=== PATIENT | female | born 1995 | race Two or more races ===

== ENCOUNTER 2024-12-21 16:37 | Inpatient (IN) | payer MEDICAID, SELFPAY ==
[2024-12-21] VITALS (108 sets, daily range): BP systolic 117–175; BP diastolic 65–97; PULSE 37–88; RESP 18–99; TEMP 36.8–37.2; O2SAT 82–100; BMI 41.8; BMI 44.9
[2024-12-21 17:16] LABS: Collection Type, Urine Clean Catch
--- NOTE | 2024-12-21 17:16 | XR_ITS ---
Examination: Complete OB ultrasound greater than 14 weeks Date and time of exam: December 21, 2024, 1747 hours INDICATIONS: Size dates discrepancy Findings: Viable intrauterine single fetus with single amniotic sac presentation cephalic Cardiac motion 145 BPM. Placenta fundal grade 2. Umbilical cord insertion 3 vessel seen. Amniotic fluid index 4.8 cm. spine maternal left. Ovaries obscured by bowel gas as well as cervix.. Composite estimated gestational age based on BPD, head circumference, abdominal circumference, femur length is 39 weeks 6 days Estimated weight 4568 g. Survey of intracranial anatomy, spinal anatomy, abdominal anatomy, four-chamber heart performed with no abnormalities identified. Impression: Viable intrauterine gestation cephalic presentation.
[2024-12-21 17:35] LABS: Basophils # (Auto) 0.0 Thou/mm3 (0.0-0.2); Basophils % (Auto) 0 % (0-2.5); Eosinophils # (Auto) 0.1 Thou/mm3 (0.0-0.5); Eosinophils % (Auto) 1 % (0-10); Hematocrit 27.4 % (36.0-46.0); Hemoglobin 9.2 g/dL (12.0-16.0); Immature Granulocytes Auto 0.05 Thou/mm3 (0.00-0.00); Lymphocytes # (Auto) 2.0 Thou/mm3 (1.0-4.8); Lymphocytes % (Auto) 23 % (10-50); Mean Corpuscular HGB Conc 33.6 g/dl (31.0-37.0); Mean Corpuscular Hemoglobin 28.9 pg (25.0-35.0); Mean Corpuscular Volume 86 fL (80-100); Monocytes # (Auto) 0.5 Thou/mm3 (0.0-0.8); Monocytes % (Auto) 6 % (0-12); Neutrophils # (Auto) 5.8 Thou/mm3 (1.8-7.7); Neutrophils % (Auto) 69 % (37-80); Nucleated Red Blood Cell # 0.08 Thou/mm3 (0.00-0.00); Nucleated Red Blood Cell % 1 /100 WBC (0); Platelet Count 144 Thou/mm3 (140-440); RDW Standard Deviation 44.1 fL (36.4-46.3); Red Blood Count 3.18 Miln/mm3 (4.00-5.20); White Blood Count 8.4 Thou/mm3 (3.6-11.0)
[2024-12-21 17:46] LABS: ROM Kit Exp Date# 111527; ROM Kit Lot # 58102387; ROM Swab Mixed By: CA; Swb Mxed in Solvent 1 min? Yes
[2024-12-21 17:47] LABS: Rupture of Fetal Membranes Negative (Negative)
[2024-12-21 17:56] LABS: Bacteria,Urine Rare; Bilirubin,Urine Negative (Negative); Blood,Urine Negative (Negative); Clarity,Urine Turbid (Clear/Hazy); Color,Urine Yellow (Lt Yel-Yel); Glucose, Urine Negative (Negative); Ketones,Urine Negative (Negative); Leukocyte Esterase,Urine Positive (Negative); Nitrite,Urine Negative (Negative); PH,Urine 6.0 (5.0-7.0); Protein,Urine 1+ (Neg - Trace); RBC,Urine 39 /hpf (0-3); Specific Gravity,Urine 1.029 (1.001-1.035); Squamous Epithelial Cell,Urine 41 /hpf (0-5); Urobilinogen,Urine Negative mg/dL (0.0-1.0); WBC,Urine 144 /hpf (0-5)
[2024-12-21 18:24] LABS: Fibrinogen 477 mg/dL (175-375); INR 0.9 (0.9-1.3); Partial Thromboplastin Time 26.7 Seconds (22.0-36.0); Prothrombin Time 10.0 Seconds (9.0-12.2)
[2024-12-21 18:36] LABS: Creatinine,Random Urine 155 mg/dL (30-125); Protein Total, Random Urine 131 mg/dL (1-14)
[2024-12-21 18:57] LABS: Alanine Aminotransferase 12 U/L (10-49); Albumin, Serum 3.4 gm/dL (3.5-5.0); Albumin/Globulin Ratio 1.3 (1.2-2.2); Alkaline Phosphatase 175 U/L (46-116); Anion Gap 9 (7-16); Aspartate Amino Transferase 22 U/L (0-34); BUN/Creatinine Ratio 13 Ratio (12-20); Bilirubin,Total 0.5 mg/dL (0.3-1.2); Blood Urea Nitrogen 8 mg/dL (9-23); Calcium 8.3 mg/dL (8.3-10.6); Calcium (Corrected) 8.8 mg/dL (8.5-10.1); Carbon Dioxide 20.7 mMol/L (20.0-31.0); Chloride 109 mMol/L (98-107); Creatinine (Component) 0.6 mg/dL (0.6-1.3); Estimated Creatinine Clearance 194.4 mL/min (>60); Globulin 2.7 gm/dL (2.3-3.5); Glucose 121 mg/dL (74-106); LDH (Lactate Dehydrogenase) 203 U/L (120-246); Osmolality,Calculated 276 (275-295); Potassium 4.2 mMol/L (3.4-5.1); Sodium 139 mMol/L (136-145); Total Protein 6.1 gm/dL (5.7-8.2); Uric Acid 4.3 mg/dL (3.1-7.8); eGFR > 60 See Note
[2024-12-21] MEDS: RINGERS LACTATED 1000 ML 1,000 ML 100 ML IV (19:30)
--- NOTE | 2024-12-21 19:37 | ESHP_ITS ---
Documentation for date of: 12/21/24 OB Labor/Induct. HPI History of Present Illness : 1 Para: 0 Term pregnancies: 0 pregnancies: 0 Living children: 0 History of Abortions: Spontaneous and Elective: 0 History of Vaginal deliveries: 0 History of sections: No History of : No GIOVANY: 12/16/24 History of present illness: H and P dictated on STAT line #9 in [employer] : #[id number] Labs Labs: Negative: RPR, HIV and Group Beta Strep Past Medical History Surgical History SURGICAL: Negative Section Meds Home Medications and Allergies Home Medications ?Medication ?Instructions ?Recorded ?Confirmed ?Type vitamin no.45-iron-FA 28 tab PO 12/21/24 His tory mg iron-1 mg chewable tablet Allergies Allergy/AdvReac Type Severity Reaction Status Date / Time No Known Allergies Allergy Verified 12/21/24 16:46 OB Exam Physical Exam Vital signs: Temp Pulse Resp BP Pulse Ox O2 Del Method 98.9 F 75 18 135/90 H 99 Room Air 12/21/24 16:48 12/21/24 19:35 12/21/24 16:48 12/21/24 19:35 12/21/24 19:34 12/21/24 16:48 OB Results Labs 12/21/24 17:09 12/21/24 17:09 Labs: Short CBC 12/21/24 Range/Units 17:09 WBC 8.4 (3.6-11.0) Thou/mm3 Hgb 9.2 L (12.0-16.0) g/dL Hct 27.4 L (36.0-46.0) % Plt Count 144 (140-440) Thou/mm3 BMP 12/21/24 17:09 Sodium 139 Potassium 4.2 Chloride 109 H Carbon Dioxide 20.7 BUN 8 L Creatinine 0.6 Glucose 121 H Calcium 8.3 Liver Function 12/21/24 Range/Units 17:09 Total Bilirubin 0.5 (0.3-1.2) mg/dL AST 22 (0-34) U/L ALT 12 (10-49) U/L Alkaline Phosphatase 175 H (46-116) U/L Albumin 3.4 L (3.5-5.0) gm/dL Urine 12/21/24 Range/Units 16:15 Urine Color Yellow (Lt Yel-Yel) Urine Clarity Turbid A (Clear/Hazy) Urine pH 6.0 (5.0-7.0) Ur Specific [place] 1.029 (1.001-1.035) Urine Protein 1+ A (Neg - Trace) Urine Glucose (UA) Negative (Negative)
[2024-12-21 20:13] LABS: Syphilis Nonreactive (Nonreactive)
[2024-12-21] MEDS: FAMOTIDINE INJ 10 MG/ML VIAL 2 ML 20 MG IV (22:35)
[2024-12-21] MEDS: ceFAZolin/D5W 2 GM IV 2 GM/100 ML BAG IV (22:36)
[2024-12-21] MEDS: CITRIC ACID/SODIUM CITR 15 ML UDC (BICITRA) 30 ML PO (22:37)
[2024-12-22] VITALS (102 sets, daily range): BP systolic 107–142; BP diastolic 55–91; PULSE 57–98; RESP 15–25; TEMP 36.1–37.6; O2SAT 95–99
[2024-12-22] MEDS: FAMOTIDINE INJ 10 MG/ML VIAL 2 ML 20 MG IV (05:09)
[2024-12-22] MEDS: CITRIC ACID/SODIUM CITR 15 ML UDC (BICITRA) 30 ML PO (05:09)
[2024-12-22] MEDS: ceFAZolin/D5W 2 GM IV 2 GM/100 ML BAG IV (05:10)
--- NOTE | 2024-12-22 05:25 | ESDS_ITS ---
DS: Providers Provider Date of admission: 12/21/24 16:37 Primary care physician: Physician No Primary/Family Admitting Provider: Ethan Beckham MD Attending Provider on Admission: Ethan Beckham MD Attending Provider on DC: Ethan Beckham MD Discharging Provider: Ethan Beckham MD DS: Diagnosis Discharge Diagnosis (1) Macrosomia: Status: Acute (2) Oligohydramnios: Status: Acute (3) Gestational hypertension: Status: Acute (4) Iron deficiency anemia: Status: Acute (5) delivery delivered: Status: Acute Problem List Completed Was Problem List Reviewed/Reconciled?: Yes Summary/Hosp Course Brief History: H and P dictated on STAT line #9 in [employer] : #[id number] Peripartum Data Delivery Method: Low Transverse Procedures: Procedures Operation Date: 12/21/24 21:15 Actual Procedure Side Surgeon p in OB Ethan Beckham MD Time Spent with Patient Time attestation: Total time spent providing and/or coordinating discharge services: Exam Vital Signs Temp Pulse Resp BP Pulse Ox O2 Del Method 98.3 F 71 18 123/68 98 Room Air 12/21/24 19:35 12/22/24 05:03 12/21/24 19:35 12/22/24 05:03 12/22/24 05:12 12/21/24 16:48 Discharge Plan Plan Patient Disposition: HOME (Self Care) Patient condition on transfer: Stable Prescriptions/Referrals Prescriptions/Med Rec: New hydrocodone-acetaminophen 5-325 mg tablet 1 tab PO Q6H MDD 4 PRN (Reason: pain) Qty: 20 0RF ibuprofen 600 mg tablet 600 mg PO Q6H PRN (Reason: pain) Qty: 30 0RF Continued vitamin #45-iron-FA 28 mg iron- 1 mg tablet,chewable PO Referrals: No Primary/Family,Physician [Primary Care Provider] - Patient/Caregiver Discharge Instructions Discharge Activity: activity as tolerated Other Discharge Activity Instructions:: Follow up office [address] Servin Education Materials: C Section Dc Print Language: Ukrainian Stand Alone Forms: Brianna Award Info., Patient Portal Info Letter, Work/Release Restrictions Planned Discharge Date 12/24/24
--- NOTE | 2024-12-22 05:28 | PD.GYNPROC ---
Operative Note - REMEDIAL PROJECT MANAGER Procedure Date of procedure: 12/22/24 Procedure Performed: Primary Low Transverse Delivery via Pfannesteil Skin Incision. Indication: Viable IUP 40w3d Macrosomia. Oligohydramnios Gestational Hypertension Declines Vaginal Delivery Pre-Op diagnosis: Viable IUP 40w3d Macrosomia. Oligohydramnios Gestational Hypertension Declines Vaginal Delivery Post-Op diagnosis: Viable IUP 40w3d Macrosomia. Oligohydramnios Gestational Hypertension Declines Vaginal Delivery Anesthesia type: Spinal Procedure description: After proper informed consent was obtained and the patient was made aware of the risks, complications, alternatives and benefits of the proposed procedure she was taken to the operating room where she underwent induction of spinal anesthesia. She was prepped and draped in the usual sterile fashion. A timeout was performed.? A Pfannenstiel skin incision was made with the scalpel and carried through to the underlying layer of fascia with the Bovie. The fascia was nicked in the midline incision and the incision was extended bilaterally with the Bovie. The inferior aspect of the fascial incision was grasped with Stephanie clamps elevated and the underlying rectus muscle dissected off with the Bovie. The superior aspect the fascial incision was grasped with Stephanie clamps elevated and the underlying rectus muscle dissected off with the Bovie. The rectus muscles were in the midline. The peritoneum was grasped between 2 Garcia clamps and entered sharply with the Metzenbaum scissors. The peritoneum was extended superiorly and inferiorly with good visualization of the bladder. The vesicouterine peritoneum was incised transversely and the bladder flap created digitally. A [place] blade was inserted. A low transverse incision was made in the uterus with a scapel and the incision was extended digitally. The 's head delivered and the mouth and nose were suctioned with the bulb suction. The shoulder and body delivered atraumatically. The cord was clamped after 30 second delayed cord clamping and the cord was cut.? The was handed off to the waiting Pediatric staff, cord blood was collected for lab testing. The placenta was removed complete and intact. The uterus was exteriorized and cleared of all clots and debris. The uterine incision was closed with #1-0 chromic catgut suture in a running interlocking fashion. A second layer of the same suture was used to imbricate the first layer and obtain excellent hemostasis. The vesicouterine peritoneum was closed with 2-0 chromic catgut suture in a running fashion. The firm uterus was returned to the abdomen. The gutters were cleared of all clots and debris. The peritoneum was closed with 0 chromic catgut suture in running fashion. The rectus muscle was closed with 0 chromic catgut suture. The fascia was closed with 0 Vicryl beginning at each angle and ending in the center in a running fashion. The subcutaneous tissue was irrigated with warmed normal saline solution and found to be hemostatic. The subcutaneous tissue was closed with 2-0 chromic catgut suture in a running fashion. The skin was closed with 4-0 Monocryl. A Dermabond Prineo dressing was applied and a sterile pressure dressing was applied.? She tolerated the procedure well. Counts were correct. I discussed with the patient the nature of her condition, intraoperative findings and expectation for recovery all? questions answered Estimated blood loss (ml): 600 Findings: Viable Male Infant 10'10 , cephalic, Amniotic fluid clear, 9/9 Placenta removed complete and intact. Uterus , ovaries and tubes grossly wnl. Complications: none Surgical staff Romana TUCKER Operation Date: 12/21/24 21:15 Case Staff SLIDE FASTENERS INSPECTOR: Dustin Mendoza Diagnosis Discharge Diagnosis (1) Macrosomia: Status: Acute (2) Oligohydramnios: Status: Acute (3) Gestational hypertension: Status: Acute (4) Iron deficiency anemia: Status: Acute (5) delivery delivered: Status: Acute Problem List Completed Was Problem List Reviewed/Reconciled?: Yes
[2024-12-22] MEDS: KETOROLAC INJ 30 MG/ML VIAL IVP ×2 (07:35→17:48)
--- NOTE | 2024-12-22 11:30 | ESHP_ITS ---
RE: MARY ESPARZA : 1995 DATE OF ADMISSION: 12/21/2024 HISTORY OF PRESENT ILLNESS: This is a 29-year-old 1 para 0 with intrauterine at 40 weeks and 3 days who is referred by her primary CERTIFIED NURSE, Dr. Alicea to [facility] for elevated blood pressures in the office today. The patient denies any history of elevated blood pressures in her . She denies any headache, change in vision or right upper quadrant pain. She denies any chest pain, palpitations, cough, fever, shortness of breath, or lower extremity pain. She reports occasional contractions. She denies any leaking or bleeding. Her workup and evaluation shows an US with estimated weight of 4568 g and an MISTY of 4.8. The patient's care was with Dr. Alicea and her care was complicated by low back pain, obesity, and insomnia. The patient had a normal 1-hour glucose tolerance test. Her other labs appear to be within normal range. ALLERGIES: NO KNOWN DRUG ALLERGIES. MEDICATIONS: multivitamin 1 p.o. daily. SOCIAL HISTORY: She speaks Marshallese. She denies any alcohol drug use or smoking. PAST MEDICAL HISTORY: Obesity, chronic low back pain, insomnia. PAST SURGICAL HISTORY: Denies. FAMILY HISTORY: Both parents have type 2 diabetes mellitus. REVIEW OF SYSTEMS: As above. PHYSICAL EXAMINATION: Vital Signs: Blood pressure 159/95, heart rate 74, respirations 18, temperature is 98.6. HEENT: Oropharynx and sclerae are clear. Lungs: Clear to auscultation bilaterally. Heart: Regular rate and rhythm. Abdomen: Gravid consistent with macrosomia. Extremities: Nontender. Skin: No gross rashes or lesions. Neurologic: No focal deficits. ASSESSMENT AND PLAN: Intrauterine at 40 weeks and 3 days, gestational hypertension, macrosomia, Oligohydramnios. Informed consent was obtained. The patient made aware of the risks, complications, alternatives, and benefits of trial of vaginal delivery with estimated weight of 4500 g. She was offered delivery and the patient agreed to undergo delivery. She has been made aware of the risks, complications, alternatives, and benefits of delivery and she agrees. DT: 19:36:20 TT: 20:16:00 Ref: [id number] - TID: [id number] MTDD
[2024-12-22] MEDS: DOCUSATE SOD 100 MG CAPSULE PO (12:06)
[2024-12-22 12:22] LABS: Basophils # (Auto) 0.0 Thou/mm3 (0.0-0.2); Basophils % (Auto) 0 % (0-2.5); Eosinophils # (Auto) 0.0 Thou/mm3 (0.0-0.5); Eosinophils % (Auto) 0 % (0-10); Hematocrit 25.2 % (36.0-46.0); Immature Granulocytes Auto 0.06 Thou/mm3 (0.00-0.00); Lymphocytes # (Auto) 1.5 Thou/mm3 (1.0-4.8); Lymphocytes % (Auto) 14 % (10-50); Mean Corpuscular HGB Conc 32.9 g/dl (31.0-37.0); Mean Corpuscular Hemoglobin 29.1 pg (25.0-35.0); Mean Corpuscular Volume 88 fL (80-100); Monocytes # (Auto) 0.4 Thou/mm3 (0.0-0.8); Monocytes % (Auto) 4 % (0-12); Neutrophils # (Auto) 8.8 Thou/mm3 (1.8-7.7); Neutrophils % (Auto) 82 % (37-80); Nucleated Red Blood Cell # 0.03 Thou/mm3 (0.00-0.00); Nucleated Red Blood Cell % 0 /100 WBC (0); Platelet Count 120 Thou/mm3 (140-440); RDW Standard Deviation 45.1 fL (36.4-46.3); Red Blood Count 2.85 Miln/mm3 (4.00-5.20); White Blood Count 10.7 Thou/mm3 (3.6-11.0)
[2024-12-22 12:25] LABS: Hemoglobin 8.3 g/dL (12.0-16.0)
[2024-12-22] MEDS: OXYTOCIN in NS 20 units 20 UNIT/1,000 ML BAG 125 UNIT IV (14:34)
[2024-12-22] MEDS: ACETAMINOPHEN 325 MG TABLET 650 MG PO ×2 (14:41→23:42)
[2024-12-23 02:42] VITALS: TEMP 37.1
[2024-12-23] MEDS: KETOROLAC INJ 30 MG/ML VIAL IVP (02:42)
[2024-12-23 04:00] VITALS: BP 133/83; PULSE 98; RESP 20; TEMP 37.2; O2SAT 95
[2024-12-23 08:00] VITALS: BP 124/81; PULSE 93; RESP 22; TEMP 37.1; O2SAT 96
[2024-12-23] MEDS: HYDROcodone/APAP 5/325 TABLET 1 TAB PO ×2 (08:21→12:15)
--- NOTE | 2024-12-23 08:53 | ESPR_ITS ---
Subjective Subjective Interval history: Delivery type: , gestational hypertension macrosomia Patient doing well this morning. No acute complaints. Ambulating, tolerating p.o. and voiding without difficulty. HTN/Pre-Eclampsia screen: No chest pain, shortness of breath, headache, visual changes, epigastric or right upper quadrant pain. Breast-feeding, lochia diminishing. Bowel: Flatus+/ BM+ Exam Vital Signs Temp Pulse Resp BP Pulse Ox O2 Del Method 98.8 F 93 22 H 124/81 96 Room Air 12/23/24 08:00 12/23/24 08:00 12/23/24 08:00 12/23/24 08:00 12/23/24 08:00 12/23/24 08:00 Constitutional Constitutional: no acute distress Routine HEENT Exam Head: Present normocephalic and atraumatic Eye: Present EOMI and PERRL ENT: Present mucous membranes moist Routine Neck Exam Neck: Present supple and trachea midline Routine Respiratory Exam Respiratory: Present chest non-tender, lungs clear, normal breath sounds and no resp distress Routine Cardiovascular Exam Cardiovascular: Present RRR Routine Abdominal Exam Abdominal: Present soft and normoactive bowel sounds Routine Extremities Exam Extremities: Present full ROM Routine Skin Exam Skin: Present intact, dry and warm Routine Neurological Exam Neurological: Present alert, oriented X3 and CN II-XII intact Routine Psychiatric Exam Psychiatric: Present normal affect and normal thought process Objective Labs 12/22/24 12:08 12/21/24 17:09 Labs: Laboratory Results - last 24 hr 12/22/24 12:08 WBC 10.7 RBC 2.85 L Hgb 8.3 L Hct 25.2 L MCV 88 MCH 29.1 MCHC 32.9 RDW Std Deviation 45.1 Plt Count 120 L Neut % (Auto) 82 H Lymph % (Auto) 14 [place] % (Auto) 4 Eos % (Auto) 0 Baso % (Auto) 0 Neut # (Auto) 8.8 H Lymph # (Auto) 1.5 [place] # (Auto) 0.4 Eos # (Auto) 0.0 Baso # (Auto) 0.0 Immature Gran # (Auto) 0.06 H Absolute Nucleated RBC 0.03 H Immature Gran % 1 H Nucleated RBC % 0 Assessment & Plan Problem List (1) Macrosomia: Status: Acute (2) Oligohydramnios: Status: Acute (3) Gestational hypertension: Status: Acute (4) Iron deficiency anemia: Status: Acute (5) delivery delivered: Status: Acute Assessment and plan: 1. Continue routine /post-op care 2. Labs reviewed, cbc appropriate 3. Remove dressing/Dominguez 4. Encourage to ambulate, shower 5. Encourage PO intake, breast feeding Time Spent With Patient Time: Total time spent is greater than 50% in coordination of care (as documented) at patient's floor/unit and/or counseling patient:
[2024-12-23] MEDS: DOCUSATE SOD 100 MG CAPSULE PO (09:50)
[2024-12-23] MEDS: ENOXAPARIN SOD INJ 40 MG/0.4 ML SYRINGE SC (09:50)
[2024-12-23 16:00] VITALS: BP 112/71; PULSE 99; RESP 20; TEMP 37.4; O2SAT 97
[2024-12-23] MEDS: HYDROcodone/APAP 5/325 TABLET 2 TAB PO ×2 (16:28→23:11)
[2024-12-23 20:45] VITALS: BP 136/86; PULSE 100; RESP 18; TEMP 36.9; O2SAT 95
[2024-12-23 23:15] VITALS: BP 145/87; PULSE 99; RESP 18; TEMP 38.4; O2SAT 97
[2024-12-24] VITALS (15 sets, daily range): BP systolic 107–142; BP diastolic 71–93; PULSE 74–95; RESP 16–20; TEMP 36.2–38.1; O2SAT 95–98
--- NOTE | 2024-12-24 00:17 | XR_ITS ---
Examination: AP lateral chest 2 views TECHNIQUE: Portable upright AP lateral chest 2 views Date and time: December 24, 2024 0032 hours INDICATIONS: Sepsis alert today. FINDINGS: Normal heart size. Lungs are clear. The osseous structures are intact. IMPRESSION: No active disease
[2024-12-24] MEDS: RINGERS LACTATED 1000 ML 1,000 ML 100 ML IV (00:37)
[2024-12-24] MEDS: PIPER/TAZO 3.375 GM PREMIX 3.375 GM/50 ML BAG IV ×3 (01:04→18:58)
[2024-12-24] MEDS: RINGERS LACTATED 1000 ML 1,000 ML 125 ML IV (01:10)
[2024-12-24 01:30] LABS: Basophils # (Auto) 0.0 Thou/mm3 (0.0-0.2); Basophils % (Auto) 0 % (0-2.5); Eosinophils # (Auto) 0.1 Thou/mm3 (0.0-0.5); Eosinophils % (Auto) 1 % (0-10); Hematocrit 20.6 % (36.0-46.0); Immature Granulocytes Auto 0.10 Thou/mm3 (0.00-0.00); Lymphocytes # (Auto) 1.3 Thou/mm3 (1.0-4.8); Lymphocytes % (Auto) 14 % (10-50); Mean Corpuscular HGB Conc 34.5 g/dl (31.0-37.0); Mean Corpuscular Hemoglobin 29.7 pg (25.0-35.0); Mean Corpuscular Volume 86 fL (80-100); Monocytes # (Auto) 0.5 Thou/mm3 (0.0-0.8); Monocytes % (Auto) 5 % (0-12); Neutrophils # (Auto) 7.7 Thou/mm3 (1.8-7.7); Neutrophils % (Auto) 79 % (37-80); Nucleated Red Blood Cell # 0.03 Thou/mm3 (0.00-0.00); Nucleated Red Blood Cell % 0 /100 WBC (0); Platelet Count 130 Thou/mm3 (140-440); RDW Standard Deviation 45.2 fL (36.4-46.3); Red Blood Count 2.39 Miln/mm3 (4.00-5.20); White Blood Count 9.8 Thou/mm3 (3.6-11.0)
[2024-12-24 01:48] LABS: Hemoglobin 7.1 g/dL (12.0-16.0)
[2024-12-24] MEDS: KETOROLAC INJ 30 MG/ML VIAL IVP (02:19)
--- NOTE | 2024-12-24 02:58 | PRELIM_ITS ---
Radiographs of the chest (2 views). December 24, 2024 at 0032 hours Clinical history: Sepsis. Comparison: None. Findings: Cardiomegaly. No pneumothorax. Mild bilateral lung consolidation, atelectasis versus pneumonia. There is no pleural effusion. The bony thorax is unremarkable. Impression: Cardiomegaly. Mild bilateral lung consolidation, atelectasis versus pneumonia. Report Electronically Signed By: Arturo Avalos 12/24/2024 2:57:46 AM [EST]
--- NOTE | 2024-12-24 07:35 | ESPR_ITS ---
Subjective Subjective Interval history: Delivery type: Patient doing well this morning. No acute complaints. Ambulating, tolerating p.o. and voiding without difficulty. HTN/Pre-Eclampsia screen: No chest pain, shortness of breath, headache, visual changes, epigastric or right upper quadrant pain. Breast-feeding, lochia diminishing. Bowel: Flatus+/ BM+ Exam Vital Signs Temp Pulse Resp BP Pulse Ox O2 Del Method 97.6 F 74 16 107/71 97 Room Air 12/24/24 06:14 12/24/24 06:14 12/24/24 06:14 12/24/24 06:14 12/24/24 06:14 12/24/24 03:20 Constitutional Constitutional: no acute distress Routine HEENT Exam Head: Present normocephalic and atraumatic Eye: Present EOMI and PERRL ENT: Present mucous membranes moist Routine Neck Exam Neck: Present supple and trachea midline Routine Respiratory Exam Respiratory: Present chest non-tender, lungs clear, normal breath sounds and no resp distress Routine Cardiovascular Exam Cardiovascular: Present RRR Routine Abdominal Exam Abdominal: Present soft and normoactive bowel sounds Routine Extremities Exam Extremities: Present full ROM Routine Skin Exam Skin: Present intact, dry and warm Routine Neurological Exam Neurological: Present alert, oriented X3 and CN II-XII intact Routine Psychiatric Exam Psychiatric: Present normal affect and normal thought process Objective Labs 12/24/24 00:53 12/21/24 17:09 Labs: Laboratory Results - last 24 hr 12/21/24 12/24/24 19:05 00:53 WBC 9.8 RBC 2.39 L Hgb 7.1 L Hct 20.6 L* MCV 86 MCH 29.7 MCHC 34.5 RDW Std Deviation 45.2 Plt Count 130 L Neut % (Auto) 79 Lymph % (Auto) 14 [place] % (Auto) 5 Eos % (Auto) 1 Baso % (Auto) 0 Neut # (Auto) 7.7 Lymph # (Auto) 1.3 [place] # (Auto) 0.5 Eos # (Auto) 0.1 Baso # (Auto) 0.0 Immature Gran # (Auto) 0.10 H Absolute Nucleated RBC 0.03 H Immature Gran % 1 H Nucleated RBC % 0 Blood Type O Positive Antibody Screen NEGATIVE Crossmatch See Detail Blood Bank Wristband ID Yes Assessment & Plan Problem List (1) Macrosomia: Status: Acute (2) Oligohydramnios: Status: Acute (3) Gestational hypertension: Status: Acute (4) Iron deficiency anemia: Status: Acute (5) delivery delivered: Status: Acute Assessment and plan: PPD/POD#2 1. Continue routine care 2. Transition to PO meds. 3. Encourage to ambulate/ breast-feed 4. Anticipate discharge home today. Time Spent With Patient Time: Total time spent is greater than 50% in coordination of care (as documented) at patient's floor/unit and/or counseling patient:
[2024-12-24] MEDS: DOCUSATE SOD 100 MG CAPSULE PO (08:30)
[2024-12-24] MEDS: ENOXAPARIN SOD INJ 40 MG/0.4 ML SYRINGE SC (08:30)
[2024-12-24 10:28] LABS: Basophils # (Auto) 0.0 Thou/mm3 (0.0-0.2); Basophils % (Auto) 0 % (0-2.5); Eosinophils # (Auto) 0.1 Thou/mm3 (0.0-0.5); Eosinophils % (Auto) 1 % (0-10); Hematocrit 24.8 % (36.0-46.0); Immature Granulocytes Auto 0.10 Thou/mm3 (0.00-0.00); Lymphocytes # (Auto) 1.6 Thou/mm3 (1.0-4.8); Lymphocytes % (Auto) 16 % (10-50); Mean Corpuscular HGB Conc 34.3 g/dl (31.0-37.0); Mean Corpuscular Hemoglobin 29.2 pg (25.0-35.0); Mean Corpuscular Volume 85 fL (80-100); Monocytes # (Auto) 0.5 Thou/mm3 (0.0-0.8); Monocytes % (Auto) 5 % (0-12); Neutrophils # (Auto) 7.5 Thou/mm3 (1.8-7.7); Neutrophils % (Auto) 76 % (37-80); Nucleated Red Blood Cell # 0.02 Thou/mm3 (0.00-0.00); Nucleated Red Blood Cell % 0 /100 WBC (0); Platelet Count 136 Thou/mm3 (140-440); RDW Standard Deviation 48.1 fL (36.4-46.3); Red Blood Count 2.91 Miln/mm3 (4.00-5.20); White Blood Count 9.9 Thou/mm3 (3.6-11.0)
[2024-12-24 10:43] LABS: Hemoglobin 8.5 g/dL (12.0-16.0)
[2024-12-24] MEDS: IBUPROFEN TAB 400 MG TABLET 800 MG PO ×2 (12:17→21:27)
[2024-12-25] MEDS: PIPER/TAZO 3.375 GM PREMIX 3.375 GM/50 ML BAG IV (02:55)
[2024-12-25] MEDS: HYDROcodone/APAP 5/325 TABLET 1 TAB PO (03:11)
[2024-12-25 03:15] VITALS: BP 119/76; PULSE 86; RESP 16; TEMP 36.8; O2SAT 96
[2024-12-25 07:48] VITALS: BP 129/73; PULSE 98; RESP 18; TEMP 39.5; O2SAT 98
[2024-12-25] MEDS: ACETAMINOPHEN 325 MG TABLET 650 MG PO ×2 (07:53→15:09)
[2024-12-25] MEDS: DOCUSATE SOD 100 MG CAPSULE PO (08:40)
[2024-12-25] MEDS: ENOXAPARIN SOD INJ 40 MG/0.4 ML SYRINGE SC (08:58)
[2024-12-25 09:37] LABS: COVID-19 Antigen (In-House) Negative (Negative)
[2024-12-25 09:38] LABS: Influenza A Ag Negative; Influenza B Ag Negative
--- NOTE | 2024-12-25 10:01 | ESPR_ITS ---
Subjective Subjective Interval history: Patient not feeling well this morning- having fever again and she has been crying because she feels like she can't get better . Temp was 100.3F then 103.1F at 0748 on recheck after being afebrile since 0012 on 12/24. She has been ambulating without lightheadedness/dizziness. Voiding spontaneously since chambers was removed, no issues. Tolerating regular diet without nausea/vomiting. Passing gas. Only other sx related to illness is mild sore throat. No cough. Her pain has been well controlled with pain medications. Exam Vital Signs Temp Pulse Resp BP Pulse Ox O2 Del Method 103.1 F H 98 18 129/73 98 Room Air 12/25/24 07:48 12/25/24 07:48 12/25/24 07:48 12/25/24 07:48 12/25/24 07:48 12/25/24 07:48 Narrative Exam General: well developed, well nourished, no acute distress, conversant Cardiac: normal heart rate Lungs: breathing without distress Abdomen: Area of induration within pannus from dependent edema, prominent striae are present and there is slight erythema of that portion of the abdomen, post- gravid, appropriate TTP, no rebound or guarding, pfannenstiel incision covered by dry/clean/intact prineo bandage. Incision well reapproximated. No incisional erythema, drainage or induration. Fundus firm at u-2cm. Extremities: no pain with palpation of calves, 1+ edema of BLE Objective Labs 12/24/24 10:00 12/21/24 17:09 Labs: Laboratory Results - last 24 hr 12/24/24 12/25/24 10:00 09:04 WBC 9.9 RBC 2.91 L Hgb 8.5 L Hct 24.8 L MCV 85 MCH 29.2 MCHC 34.3 RDW Std Deviation 48.1 H Plt Count 136 L Neut % (Auto) 76 Lymph % (Auto) 16 [place] % (Auto) 5 Eos % (Auto) 1 Baso % (Auto) 0 Neut # (Auto) 7.5 Lymph # (Auto) 1.6 [place] # (Auto) 0.5 Eos # (Auto) 0.1 Baso # (Auto) 0.0 Immature Gran # (Auto) 0.10 H Absolute Nucleated RBC 0.02 H Immature Gran % 1 H Nucleated RBC % 0 Influenza A (Rapid) Negative Influenza B (Rapid) Negative SARS-CoV-2 Ag (Rapid) Negative Impressions Impression: Examination: AP lateral chest 2 views TECHNIQUE: Portable upright AP lateral chest 2 views Date and time: December 24, 2024 0032 hours INDICATIONS: Sepsis alert today. FINDINGS: Normal heart size. Lungs are clear. The osseous structures are intact. IMPRESSION: No active disease Assessment & Plan Problem List (1) Puerperal endometritis, condition or complication: Status: Acute Assessment and plan: Adriana is a 29yo G1 nowP1 s/p uncomplicated PLTCS for macrosomia ([id number]), with recurrence of fever on POD 3. Initial fever 0012 on 12/24 had workup consisting of: chest x-ray (prelim report stated atalectasis vs PNA, but final report showed neither of these findings- lungs were clear), blood cultures (negative at 24hr), urine culture (pending), WBC count at that time was 9.8. Hgb 7.1 was also noted then, so she was transfused 2u pRBCs with resultant Hgb 8.5. She was started on IV zosyn for presumed PNA and had been afebrile >24hr, but fever recurred this morning up to 103F. Covid and flu swabs were performed which resulted negative. Exam this morning shows dependent edema of pannus with area surrounding prominent striae slightly erythematous. Incision itself is well appearing. BMI 41.8, she is receiving lovenox ppx. Presume endometritis vs cellulitis at this time. Plan: -Continue routine /post-op care -Repeat CBC -Stop zosyn. -Start triple abx therapy (Clindamycin 900mg IV Q8hr, Gentamicin 5mg/kg IV q24hr, Ampicillin 2g IV Q6hr). If fevers continue despite broad spectrum abx, will perform imaging. -Awaiting urine cx -Regular diet -motrin 800mg PO Q8hr, norco 5/325mg PO Q6hr prn pain -continue ppx lovenox -Encourage ambulation and use of IS (2) delivery delivered: Status: Acute (3) Blood transfusion during current hospitalization: Status: Acute (4) Macrosomia: Status: Acute (5) Obesity compl pregn//puerperp: Status: Acute (6) Oligohydramnios: Status: Acute (7) Gestational hypertension: Status: Acute (8) Iron deficiency anemia: Status: Acute Time Spent With Patient Time: Total time spent is greater than 50% in coordination of care (as documented) at patient's floor/unit and/or counseling patient:
[2024-12-25 11:02] LABS: Basophils # (Auto) 0.0 Thou/mm3 (0.0-0.2); Basophils % (Auto) 0 % (0-2.5); Eosinophils # (Auto) 0.1 Thou/mm3 (0.0-0.5); Eosinophils % (Auto) 2 % (0-10); Hematocrit 24.1 % (36.0-46.0); Immature Granulocytes Auto 0.05 Thou/mm3 (0.00-0.00); Lymphocytes # (Auto) 1.0 Thou/mm3 (1.0-4.8); Lymphocytes % (Auto) 12 % (10-50); Mean Corpuscular HGB Conc 33.2 g/dl (31.0-37.0); Mean Corpuscular Hemoglobin 28.9 pg (25.0-35.0); Mean Corpuscular Volume 87 fL (80-100); Monocytes # (Auto) 0.3 Thou/mm3 (0.0-0.8); Monocytes % (Auto) 3 % (0-12); Neutrophils # (Auto) 7.0 Thou/mm3 (1.8-7.7); Neutrophils % (Auto) 83 % (37-80); Nucleated Red Blood Cell # 0.03 Thou/mm3 (0.00-0.00); Nucleated Red Blood Cell % 0 /100 WBC (0); Platelet Count 143 Thou/mm3 (140-440); RDW Standard Deviation 48.9 fL (36.4-46.3); Red Blood Count 2.77 Miln/mm3 (4.00-5.20); White Blood Count 8.5 Thou/mm3 (3.6-11.0)
[2024-12-25] MEDS: Ampicillin Inj 2,000 MG in SODIUM CHLORIDE 0.9% (POP) 100 ML 200 MG IV ×3 (11:09→23:12)
[2024-12-25 11:12] LABS: Hemoglobin 8.0 g/dL (12.0-16.0)
[2024-12-25 11:20] VITALS: BP 122/75; PULSE 94; RESP 17; TEMP 37.2; O2SAT 97
--- NOTE | 2024-12-25 12:15 | PC.NURSE ---
Spoke to Joann in pharmacy in [facility] to gentamycin order he states we're giving a total of 460 of gentamycin
[2024-12-25] MEDS: GENTAMICIN/NS 100 MG IVPB 100 MG/100 ML BAG 200 MG IV (12:17)
[2024-12-25] MEDS: IBUPROFEN TAB 400 MG TABLET 800 MG PO ×2 (12:21→20:05)
[2024-12-25] MEDS: GENTAMICIN/NS 120 MG IVPB 120 MG/100 ML BAG 200 MG IV ×3 (12:46→14:04)
[2024-12-25 15:00] VITALS: BP 125/74; PULSE 82; RESP 17; TEMP 37; O2SAT 98
[2024-12-25 19:25] VITALS: BP 139/86; PULSE 81; RESP 18; TEMP 36.7; O2SAT 97
[2024-12-25 23:18] VITALS: BP 130/84; PULSE 81; RESP 18; TEMP 36.8; O2SAT 97
[2024-12-26 03:30] VITALS: BP 132/88; PULSE 80; RESP 18; TEMP 36.7; O2SAT 97
[2024-12-26] MEDS: Ampicillin Inj 2,000 MG in SODIUM CHLORIDE 0.9% (POP) 100 ML 200 MG IV ×4 (05:05→23:34)
[2024-12-26] MEDS: IBUPROFEN TAB 400 MG TABLET 800 MG PO ×2 (05:06→15:31)
--- NOTE | 2024-12-26 07:20 | PD.LDPPPRG ---
Subjective Subjective Interval history: Patient feels much better today. Pain is controlled. She is ambulating no lightheadedness/dizziness. Voiding spontaneously since chambers was removed, no issues. Tolerating regular diet without nausea/vomiting. Passing gas and has had a BM. No fevers/chills since early yesterday morning, no CP/SOB. Exam Vital Signs Temp Pulse Resp BP Pulse Ox O2 Del Method 98.1 F 80 18 132/88 H 97 Room Air 12/26/24 03:30 12/26/24 03:30 12/26/24 03:30 12/26/24 03:30 12/26/24 03:30 12/26/24 03:30 Narrative Exam General: well developed, well nourished, no acute distress, conversant Cardiac: normal heart rate Lungs: breathing without distress Abdomen: Area of induration within pannus from dependent edema, prominent striae are present and there is slightly less erythema of that portion of the abdomen compared to yesterday, post-gravid, appropriate TTP, no rebound or guarding, pfannenstiel incision covered by dry/clean/intact prineo bandage. Incision well reapproximated. No incisional erythema, drainage or induration. Fundus firm at u-2cm. Extremities: no pain with palpation of calves, 1+ edema of BLE Objective Labs 12/25/24 10:45 12/21/24 17:09 Labs: Laboratory Results - last 24 hr 12/25/24 12/25/24 09:04 10:45 WBC 8.5 RBC 2.77 L Hgb 8.0 L Hct 24.1 L MCV 87 MCH 28.9 MCHC 33.2 RDW Std Deviation 48.9 H Plt Count 143 Neut % (Auto) 83 H Lymph % (Auto) 12 [place] % (Auto) 3 Eos % (Auto) 2 Baso % (Auto) 0 Neut # (Auto) 7.0 Lymph # (Auto) 1.0 [place] # (Auto) 0.3 Eos # (Auto) 0.1 Baso # (Auto) 0.0 Immature Gran # (Auto) 0.05 H Absolute Nucleated RBC 0.03 H Immature Gran % 1 H Nucleated RBC % 0 Influenza A (Rapid) Negative Influenza B (Rapid) Negative SARS-CoV-2 Ag (Rapid) Negative Assessment & Plan Problem List (1) Abdominal wall cellulitis: Status: Acute Assessment and plan: Adriana is a 29yo G1 nowP1 s/p uncomplicated PLTCS for macrosomia ([id number]), doing well overall on POD 4. She spiked a fever at 0012 on 12/24 and underwent workup consisting of: chest x-ray (prelim report stated atalectasis vs PNA, but final report showed neither of these findings- lungs were clear), blood cultures (negative at 48hr), urine culture (negative), WBC count at that time was 9.8. Hgb 7.1 was also noted then, so she was transfused 2u pRBCs with resultant Hgb 8.5. She was started on IV zosyn for presumed PNA and had been afebrile >24hr, but fever of 103F occurred at 0748 on 12/25. Covid and flu swabs were then performed which resulted negative. Repeated CBC: WBC 8.5, Hgb 8. Exam the morning of 12/25 showed dependent edema of pannus with area surrounding prominent striae slightly erythematous. Incision itself well appearing. BMI 41.8, she is receiving lovenox ppx. Based on exam this morning, area involving dependent edema of pannus with surrounding abdominal straie appears less erythematous, so leading diagnosis is now early cellulitis that is improving. Plan: -Continue routine /post-op care -Given clinical improvement, will continue triple abx therapy (Clindamycin 900mg IV Q8hr, Gentamicin 5mg/kg IV q24hr, Ampicillin 2g IV Q6hr) for total 48 hours (until tomorrow am) since cannot rule out endometritis -Regular diet -motrin 800mg PO Q8hr, norco 5/325mg PO Q6hr prn pain -continue ppx lovenox -Encourage ambulation and use of IS (2) delivery delivered: Status: Acute (3) Blood transfusion during current hospitalization: Status: Acute (4) Macrosomia: Status: Acute (5) Obesity compl pregn//puerperp: Status: Acute (6) Oligohydramnios: Status: Acute (7) Gestational hypertension: Status: Acute (8) Iron deficiency anemia: Status: Acute Time Spent With Patient Time: Total time spent is greater than 50% in coordination of care (as documented) at patient's floor/unit and/or counseling patient:
[2024-12-26 07:50] VITALS: BP 118/78; PULSE 77; RESP 18; TEMP 36.6; O2SAT 97
--- NOTE | 2024-12-26 08:20 | PC.NURSE ---
Ok to give Lovenox with platelet of [address] Aguero
[2024-12-26] MEDS: DOCUSATE SOD 100 MG CAPSULE PO (08:22)
[2024-12-26] MEDS: ENOXAPARIN SOD INJ 40 MG/0.4 ML SYRINGE SC (08:22)
--- NOTE | 2024-12-26 10:00 | PC.NURSE ---
Called pharmacy to see if patient needed a peak and trough before the next gent dose pharmacist stated no need
[2024-12-26 11:25] VITALS: BP 127/83; PULSE 75; RESP 18; TEMP 36.6; O2SAT 98
[2024-12-26] MEDS: GENTAMICIN/NS 100 MG IVPB 100 MG/100 ML BAG 200 MG IV (12:06)
[2024-12-26] MEDS: GENTAMICIN/NS 120 MG IVPB 120 MG/100 ML BAG 200 MG IV ×3 (12:37→13:46)
--- NOTE | 2024-12-26 13:06 | PC.CC ---
ASW completed a biopsychosocial assessment with the pt at bedside. Present was the FOB and pts sister. Pt reported she is ready for the and has another child at home under the age of 5. Pt reports she was consistent with care once she found out she was ; however, prior to that, she was late to care. Pt reported she had left the [facility] and when she returned she found out she was . Pt reported that once she found out she was , she sought care immediately. Pt reported she is bottle feeding, has diapers and clothes at home. Pt reports the infants Peds will be Dr. Jorge James at [facility] located in [place]. Pt reported she delivered via and was at full term. Pt reports there are no concerns with the and she and are bonding appropriately. was in his bassinet upon entry and was asleep. Pt reports she has strong support at home and is ready for d/c. There are no concerns with SS and pt is cleared by SS. Pt was provided community resources to [facility] and local mental health agencies.
--- NOTE | 2024-12-26 13:09 | PC.CC ---
CORRECTION: Mother reported this is her first child and there are no other children in her care at home.
[2024-12-26 15:00] VITALS: BP 133/89; PULSE 73; RESP 17; TEMP 36.9; O2SAT 99
[2024-12-26 19:40] VITALS: BP 135/87; PULSE 73; RESP 18; TEMP 36.7; O2SAT 99
--- NOTE | 2024-12-27 02:02 | PC.NURSE ---
Patient complains of itchiness in her abdomen, requesting medication. Provided ice packs. notified, new order given (benadryl IVP).
[2024-12-27 04:15] VITALS: BP 128/83; PULSE 66; RESP 18; TEMP 36.6; O2SAT 99
[2024-12-27] MEDS: IBUPROFEN TAB 400 MG TABLET 800 MG PO (04:48)
[2024-12-27] MEDS: Ampicillin Inj 2,000 MG in SODIUM CHLORIDE 0.9% (POP) 100 ML 200 MG IV (05:50)
[2024-12-27 07:50] VITALS: BP 122/83; PULSE 68; RESP 18; TEMP 36.6; O2SAT 97
--- NOTE | 2024-12-27 08:33 | PD.LDDS ---
DS: Providers Provider Date of admission: 12/21/24 18:53 Primary care physician: Physician No Primary/Family Admitting Provider: Ethan Beckham MD Attending Provider on Admission: Jean Pierre Galindo MD Consults: 12/22/24 08:27 Referral Routine Comment: Attending Provider on DC: Lakisha Aguero MD Discharging Provider: Lakisha Aguero MD DS: Diagnosis Discharge Diagnosis (1) Abdominal wall cellulitis: Status: Acute (2) Blood transfusion during current hospitalization: Status: Acute (3) Obesity compl pregn//puerperp: Status: Acute (4) delivery delivered: Status: Acute (5) Iron deficiency anemia: Status: Acute Problem List Completed Was Problem List Reviewed/Reconciled?: Yes Summary/Hosp Course Brief History: Adriana is a 29yo G1 nowP1 s/p uncomplicated PLTCS for macrosomia ([id number]), doing well on POD 5. She spiked a fever at 0012 on 12/24 and underwent workup consisting of: chest x-ray (prelim report stated atalectasis vs PNA, but final report showed neither of these findings- lungs were clear), blood cultures (negative at 48hr), urine culture (negative), WBC count at that time was 9.8. Hgb 7.1 was also noted then, so she was transfused 2u pRBCs with resultant Hgb 8.5. She was started on IV zosyn for presumed PNA and had been afebrile >24hr, but fever of 103F occurred at 0748 on 12/25. Covid and flu swabs were then performed which resulted negative. Repeated CBC: WBC 8.5, Hgb 8. Exam the morning of 12/25 showed dependent edema of pannus with area surrounding prominent striae slightly erythematous. Incision itself well appearing. Presumed diagnosis early cellulitis. Gentamicin/Clindamycin/Ampicillin were started the morning of 12/25 and Adriana had clinical improvement with no further fevers. Erythema of the pannus has resolved. BMI 41.8, she has been receiving lovenox ppx post-operatively. She is now meeting all milestones and feels ready for discharge home. She is ambulating without lightheadedness, tolerating regular diet no n/v, spontaneously voiding without issue. She has no chest pain or shortness of breath. No fevers or chills. Pain well controlled. Vitals normal, benign exam. Hemodynamically stable. Peripartum Data Delivery Method: Low Transverse Episiotomy Description: None Procedures: Procedures Operation Date: 12/21/24 21:15 Actual Procedure Side Surgeon p in OB Ethan Beckham MD Status at Discharge Functional status at discharge: independent ambulation Overall status at discharge: patient is back to baseline Time Spent with Patient Time attestation: Total time spent providing and/or coordinating discharge services: Exam Vital Signs Temp Pulse Resp BP Pulse Ox O2 Del Method 97.9 F 68 18 122/83 97 Room Air 12/27/24 07:50 12/27/24 07:50 12/27/24 07:50 12/27/24 07:50 12/27/24 07:50 12/27/24 07:50 Narrative Exam General: well developed, well nourished, no acute distress, conversant Cardiac: normal heart rate Lungs: breathing without distress Abdomen: Area of induration within pannus from dependent edema improving, prominent striae are present and there continues to be less erythema of that portion of the abdomen, post-gravid, appropriate TTP, no rebound or guarding, pfannenstiel incision covered by dry/clean/intact prineo bandage. Incision well reapproximated. No incisional erythema, drainage or induration. Fundus firm at u-2cm. Extremities: no pain with palpation of calves, 2+ edema of BLE Discharge Plan Plan Patient Disposition: HOME (Self Care) Patient condition on transfer: Stable Prescriptions/Referrals Prescriptions/Med Rec: New hydrocodone-acetaminophen 5-325 mg tablet 1 tab PO Q6H MDD 4 PRN (Reason: pain) Qty: 20 0RF ibuprofen 600 mg tablet 600 mg PO Q6H PRN (Reason: pain) Qty: 30 0RF clindamycin HCl 300 mg capsule 300 mg PO Q8H 10 Days Qty: 30 0RF clindamycin HCl 150 mg capsule 150 mg PO Q8HR Qty: 30 0RF docusate sodium [Colace] 100 mg capsule 100 mg PO BID Qty: 20 0RF Continued vitamin #45-iron-FA 28 mg iron- 1 mg tablet,chewable PO Referrals: No Primary/Family,Physician [Primary Care Provider] - Patient/Caregiver Discharge Instructions Discharge Activity: activity as tolerated Other Discharge Activity Instructions:: vaginal rest and no heavy lifting for 6 weeks. keep incision clean and dry, do not submerge. Do not drive while taking narcotic. Take full 10 day course of antibiotics to ensure infection resolves. Other Discharge Diet Instructions: regular Education Materials: Discharge Instructions for Cellulitis, C Section Dc Print Language: Egyptian Activity Restrictions/Additional Instructions: Follow up office [address] Servin, call his office for appointment Stand Alone Forms: Brianna Award Info., Patient Portal Info Letter, Work/Release Restrictions Discharge Order Discharge Orders: Discharge (Routine); Ordered 12/27/24 Ordered By: Lakisha Aguero Planned Discharge Date 12/27/24 (5) Iron deficiency anemia Qualifiers: Iron deficiency anemia type: other iron deficiency Qualified Code(s): D50.8 - Other iron deficiency anemias
== END 2024-12-27 10:50 | disposition home or self-care (01) | DRG 540 ==
LOC: S4SX 12-22 06:09 → S4NX 12-22 06:10
PROVIDERS: Obstetrics & Gynecology; Admitting Provider Specialist; Visit Provider Obstetrics & Gynecology
PROC: (CPT 59514; principal; 2024-12-21 21:00)
DX: O13.4 Gestational [pregnancy-induced] hypertension without significant proteinuria, complicating childbirth (principal); O41.03X0 Oligohydramnios, third trimester, not applicable or unspecified; O36.63X0 Maternal care for excessive fetal growth, third trimester, not applicable or unspecified; O48.0 Post-term pregnancy; Z37.0 Single live birth; Z3A.40 40 weeks gestation of pregnancy; O99.214 Obesity complicating childbirth; O99.02 Anemia complicating childbirth; D50.8 Other iron deficiency anemias; L03.311 Cellulitis of abdominal wall; O99.73 Diseases of the skin and subcutaneous tissue complicating the puerperium
CPT/HCPCS: 36415; 59025; 59409; 71046; 76805; 80053; 81001; 82570; 83615; 84112; 84156; 84550; 85025; 85384; 85610; 85730; 86780; 86850; 86900; 86901; 86923; 87040; 87086; 87502; 87811; 94762; A4314; A4649; J0290; J0689; J1200; J1580; J1650; J1885; J2274; J2543; J2590; J3490; J7120; P9016; S0077; S0191; A9270; J0736; J2270